=== PATIENT | male | born 1965 | race African-American/Black ===

== ENCOUNTER 2018-12-30 10:02 | Inpatient (IN) ==
[2018-12-30] MEDS ORDERED: ZOFRAN ODT PO PRN (10:51)
[2018-12-30] MEDS ORDERED: ZOFRAN IV PRN (10:51)
[2018-12-30] MEDS ORDERED: SEROQUEL PO PRN (10:51)
[2018-12-30] MEDS ORDERED: DULCOLAX PR PRN (10:51)
[2018-12-30] MEDS ORDERED: NICOTINE GUM BUCCAL PRN (10:51)
[2018-12-30] MEDS ORDERED: PHENOBARBITAL IV PRN (10:51)
[2018-12-30] MEDS ORDERED: SENOKOT PO PRN (10:51)
[2018-12-30] MEDS ORDERED: IMODIUM PO PRN ×2 (10:51)
[2018-12-30] MEDS ORDERED: TYLENOL PO PRN (10:51)
[2018-12-30] MEDS ORDERED: ZOFRAN IM PRN (10:51)
[2018-12-30] MEDS ORDERED: DESYREL PO PRN (10:51)
[2018-12-30] MEDS ORDERED: MOTRIN PO PRN (10:51)
[2018-12-30] MEDS ORDERED: MAALOX PLUS LIQUID PO PRN (10:51)
[2018-12-30] MEDS ORDERED: TUBERSOL ID ONE (10:51)
[2018-12-30] MEDS ORDERED: D5W 1,000 ML IV PRN (10:51)
[2018-12-30 11:34] LABS: UR AMPHETAMINES QUAL NONE DETECTED (NONE DETECT); UR BARBITUATES QUAL NONE DETECTED (NONE DETECT); UR BENZODIAZEPIN QUAL NONE DETECTED (NONE DETECT); UR CANNABINOIDS QUAL NONE DETECTED (NONE DETECT); UR COCAINE QUAL NONE DETECTED (NONE DETECT); UR METHADONE QUAL NONE DETECTED (NONE DETECT); UR METHAMPHETAMINE QUAL NONE DETECTED (NONE DETECT); UR OPIATES QUAL NONE DETECTED (NONE DETECT); UR OXYCODONE QUAL NONE DETECTED (NONE DETECT); UR PCP QUAL NONE DETECTED (NONE DETECT); UR PROPOXYPHENE QUAL NONE DETECTED (NONE DETECT); UR TCA QUAL NONE DETECTED (NONE DETECT)
[2018-12-30] MEDS ORDERED: BENTYL PO PRN (11:36)
[2018-12-30] MEDS ORDERED: ATARAX PO PRN (11:36)
[2018-12-30] MEDS ORDERED: M.V.I.-12 10 ML, FOLIC ACID 1 MG, MAGNESIUM SULFATE 1 GM, THIAMINE 100 MG in NS 1,000 ML IV ONE (11:36)
[2018-12-30] MEDS ORDERED: SALINE LOCK IV FLUID XX ONE (11:36)
[2018-12-30] MEDS ORDERED: ROBAXIN PO PRN (11:36)
[2018-12-30 11:48] LABS: HEMATOCRIT 39.4 % (42.0-52.0); HEMOGLOBIN 13.4 g/dL (14.0-18.0); MCH 31.5 PG (27-31); MCV 92.5 FL (81-99); MPV 9.6 FL (7.4-10.4); RBC 4.26 XMIL (4.7-6.1); RDW 14.3 % (11.5-14.5); WBC 7.42 X1000 (4.8-10.8)
[2018-12-30 12:08] LABS: ALBUMIN 4.5 g/dL (3.5-5.0); CALCIUM 9.8 mg/dL (8.8-10.2); CREATININE 1.5 mg/dL (0.7-1.2); POTASSIUM 4.9 mmol/L (3.5-5.1); TOTAL BILIRUBIN 0.4 mg/dL (0.20-1.00); TOTAL PROTEIN 7.8 g/dL (6.3-8.3)
[2018-12-30 13:21] LABS: URINE SOURCE CLEAN CATCH
[2018-12-30 13:35] LABS: BILIRUBIN URINE NEGATIVE (NEGATIVE); BLOOD URINE 1+ (NEGATIVE); CLARITY CLEAR (CLEAR); COLOR YELLOW; GLUCOSE URINE NEGATIVE (NEGATIVE); KETONE URINE NEGATIVE (NEGATIVE); LEUKOCYTES URINE NEGATIVE (NEGATIVE); NITRITE URINE NEGATIVE (NEGATIVE); PH URINE 6.5; PROTEIN URINE NEGATIVE (NEGATIVE); UROBILINOGEN URINE NORMAL
[2018-12-30 13:36] LABS: URINE EPITHELIAL CELLS <10 /HPF (<10); URINE RBC <10 /HPF (<10)
[2018-12-30] MEDS: LIBRIUM PO SCH ×2 (14:55→23:20)
[2018-12-30] MEDS ORDERED: MONOPRIL PO SCH (18:15)
[2018-12-31] MEDS: LIBRIUM PO SCH ×3 (04:46→17:57)
[2018-12-31] MEDS: PROTONIX PO SCH ×2 (04:46→06:07)
[2018-12-31] MEDS: MONOPRIL PO SCH (08:30)
[2018-12-31] MEDS: HYDROCHLOROTHIAZIDE PO SCH (08:30)
[2018-12-31] MEDS: NICODERM PATCH TD PRN (08:30)
[2018-12-31] MEDS: FOLIC ACID PO SCH (08:30)
[2018-12-31] MEDS: THERA M PLUS PO SCH (08:30)
[2018-12-31] MEDS: VITAMIN B-1 PO SCH (08:30)
[2019-01-01] MEDS: LIBRIUM PO SCH ×4 (00:05→17:33)
[2019-01-01] MEDS: PROTONIX PO SCH (06:06)
--- NOTE | 2019-01-01 07:11 | PROGRESS NOTE ---
DATE: 12/31/2018 SUBJECTIVE: Patient seen and examined by myself on the . Notes that he is feeling a little bit better. Still did not sleep last night. Thinks he going to be able to eat this morning. Denies any current nausea or vomiting. Still having some mild shakiness. States his tremors appear to be better, his sweating is better. PHYSICAL EXAMINATION: Vital Signs: Reviewed and stable. He is awake, alert. He is in no current distress. HEENT: Normocephalic, atraumatic. CHAI. Neck: Supple. No JVD. CARDIOVASCULAR: Regular rate. No murmurs. Chest: Clear, nonlabored. Abdomen: Soft, nondistended. Extremities: Moves all extremities. Still generally weak with mild tremor. Neurologic: No focal changes. ASSESSMENT: 1. Nausea and vomiting. 2. Abdominal pain. 3. Tremors. 4. Myalgias. 5. Paresthesias. 6. Alcohol abuse withdrawal and stabilization. 7. Hypertension. PLAN: We will continue patient in the hospital. Begin counseling. We have restarted blood pressure medications. We will continue Librium and wean as tolerated. cc: Naren Gross MD
--- NOTE | 2019-01-01 07:25 | HISTORY AND PHYSICAL ---
CHIEF COMPLAINT: Nausea and vomiting. HISTORY OF PRESENT ILLNESS: The patient was seen and examined on 12/30/2018. Notes that he is having some tremors. He does not feel well. He has been jittery, anxious, nervous, and has been falling. States that usually when he gets to this stage of symptoms he has to start drinking again. That is why he came to [facility] for additional help. SOCIAL HISTORY: Patient is , lives at home. He is unemployed, in [place], PAST MEDICAL HISTORY: 1. History of kidney cancer. Status post nephrectomy in December,. 2. History of hypertension. 3. He has lost approximately 20 pounds in the past year. 4. He has chronic anxiety and depression. 5. Frequent blackouts that are alcohol related. MEDICATIONS: 1. Amlodipine 10 mg. 2. Lisinopril 10 mg. ALLERGIES: No known drug allergies although he cannot taking any anti-inflammatories or NSAIDs due to only having one kidney. REVIEW OF SYSTEMS: CIWA score is elevated at 15 secondary to mild visible tremors with his arms extended. He is having some nausea, no real vomiting. Denies any chest pain, palpitations. He is having frequent episodes of paroxysmal sweating, anxiety, easily agitated, has a headache but no blurred vision or focalized numbness, tingling, weakness. Denies any chest pain, palpitations, shortness of breath, dysuria, frequency, or urgency. Denies constipation, melena, hematochezia. Denies any skin rashes, weight loss or weight gain. FAMILY HISTORY: Noncontributory. SUBSTANCE ABUSE HISTORY: The patient was in [facility] outpatient in 2018 for depression. Has never been in a treatment facility for alcohol. Started drinking at age 20. Currently drinks at least half a case a day, but over the last week he has tried to wean down to 6 to 8 beers. Started smoking at age 31, currently smokes a pack a day. PHYSICAL EXAMINATION: VITAL SIGNS: Reviewed and stable. GENERAL: He is awake, alert. He is in no current respiratory distress. Very pleasant to talk with but he is somewhat shaky when she stands and has notable tremors with his arms extended, although mild. HEENT: Normocephalic, atraumatic, CHAI. NECK: Supple. No JVD. CARDIOVASCULAR: Regular rate. No murmurs. CHEST: Clear, nonlabored. ABDOMEN: Soft. EXTREMITIES: Moves all extremities. NEUROLOGIC: No focal changes. ASSESSMENT: 1. Nausea, vomiting. 2. Abdominal pain. 3. Myalgias. 4. Paresthesias. 5. Paroxysmal sweating. 6. Tremors. 7. Alcohol abuse, withdrawal and stabilization. 8. Chronic anxiety and depression. 9. Hypertension. 10. Weight loss secondary to stress. PLAN: We will continue patient in the hospital, place him on high-dose Librium taper. We will begin counseling. We will follow his blood pressures, restart his blood pressure medications. cc: Naren Gross MD
[2019-01-01] MEDS: FOLIC ACID PO SCH (09:08)
[2019-01-01] MEDS: MONOPRIL PO SCH (09:08)
[2019-01-01] MEDS: THERA M PLUS PO SCH (09:08)
[2019-01-01] MEDS: VITAMIN B-1 PO SCH (09:08)
[2019-01-01] MEDS: HYDROCHLOROTHIAZIDE PO SCH (09:08)
--- NOTE | 2019-01-01 17:43 | PROGRESS NOTE ---
DATE: 01/01/2019 SUBJECTIVE: Patient notes overall he is feeling better. He is feeling a little bit stronger. He is having less tremors. Denies any myalgias. Denies any fevers or chills. Denies any GI or issues currently. OBJECTIVE: Vital Signs: Reviewed and stable. Temp 98.1 degrees, pulse 74, respiratory rate 18, BP 115/86. General: Patient is very pleasant to talk with. He is in no current respiratory distress. HEENT: Normocephalic. Neck: Supple. Cardiovascular: Regular rate. No murmurs. Chest: Clear and unlabored. Abdomen: Soft, nondistended. Extremities: Moves all extremities. Neurologic: No focal changes. He has no current tremors. He is awake, alert, oriented x3. ASSESSMENT: 1. Nausea and vomiting. 2. Abdominal pain. 3. Myalgias. 4. Paresthesias. 5. Paroxysmal sweating. 6. Alcohol abuse, withdrawal, and stabilization. PLAN: We will continue patient in the hospital. Continue to wean Librium. He is improving quite nicely. Hopefully he can be discharged home over the next 1 or 2 days. Discussed with patient the use of naltrexone for medication assisted therapy on discharge. cc: Naren Gross MD
[2019-01-02] MEDS: LIBRIUM PO SCH ×5 (00:03→17:35)
[2019-01-02] MEDS: PROTONIX PO SCH (06:12)
[2019-01-02] MEDS: THERA M PLUS PO SCH (08:02)
[2019-01-02] MEDS: MONOPRIL PO SCH (08:02)
[2019-01-02] MEDS: HYDROCHLOROTHIAZIDE PO SCH (08:02)
[2019-01-02] MEDS: FOLIC ACID PO SCH (08:02)
[2019-01-02] MEDS: VITAMIN B-1 PO SCH (08:02)
[2019-01-02] MEDS: REVIA PO SCH (10:03)
[2019-01-02] MEDS: NICODERM PATCH TD PRN (15:50)
[2019-01-03] MEDS: PROTONIX PO SCH (06:22)
[2019-01-03 07:55] VITALS: BP 125/91
[2019-01-03] MEDS: FOLIC ACID PO SCH (08:22)
[2019-01-03] MEDS: VITAMIN B-1 PO SCH (08:22)
[2019-01-03] MEDS: REVIA PO SCH (08:22)
[2019-01-03] MEDS: MONOPRIL PO SCH (08:23)
[2019-01-03] MEDS: HYDROCHLOROTHIAZIDE PO SCH (08:23)
[2019-01-03] MEDS: LIBRIUM PO SCH (08:23)
[2019-01-03] MEDS: THERA M PLUS PO SCH (08:23)
--- NOTE | 2019-01-03 11:19 | PROGRESS NOTE ---
DATE: 01/02/2019 SUBJECTIVE: Patient overall is starting to feel better. He is ambulating in the [place] without much difficulty. The patient seen and examined by myself on the -. OBJECTIVE: Vital Signs: Vital signs reviewed. Temperature 98.5 degrees, pulse 63, respiratory rate 20, BP 127/92. General: Patient is awake, alert. He is in no current respiratory distress. Very pleasant to talk with. HEENT: Normocephalic. Neck: Supple. CV: Regular rate. No murmurs. Chest: Clear and nonlabored. Abdomen: Soft. Extremities: Moves all extremities. Neurologic: No focal changes. ASSESSMENT: 1. Nausea and vomiting. 2. Abdominal pain. 3. Myalgias. 4. Paresthesias. 5. Paroxysmal sweating. 6. Opiate abuse. 7. Alcohol abuse, withdrawal and continued stabilization. PLAN: We will continue to cut down Librium, continue to follow. If he improves, hopefully can discharge home tomorrow. cc: Naren Gross MD
[2019-01-03] MEDS ORDERED: LIBRIUM PO SCH (21:00)
--- NOTE | 2019-01-04 20:40 | DISCHARGE SUMMARY ---
ADMISSION DATE: 12/30/2018 DISCHARGE DATE: 01/03/2019 DISCHARGE DIAGNOSIS: 1. Nausea, vomiting. 2. Abdominal pain. 3. Myalgias. 4. Paresthesias. 5. Paroxysmal sweating. 6. Alcohol abuse withdrawal and stabilization. 7. Tremors. 8. Myalgias. CONSULTATIONS: None. PROCEDURES: None. BRIEF HOSPITAL COURSE: The patient is a 53-year-old male who presented to [facility] program secondary to nausea, vomiting, abdominal pain, tremors, myalgias. Notes he has been having issues with alcoholism. He has had episodes where he has blacked out and could not remember as well as syncopal episodes that were alcohol-related. Overall patient thankfully had uneventful hospital course prolonged only secondary to the extent of his alcoholism as well as ensuring adequate followup. DISPOSITION: Thankfully patient is awake, alert, he is in no distress. He is ambulating in the [place] without any difficulty. He will be discharged home. He will continue a 2-3 day taper Librium at home, will continue naltrexone. Discussed with him the importance of outpatient life counseling as well as drug counseling. He will continue to follow his blood pressures at home as well. Greater than 30 minutes was spent in total care. cc: Naren Gross MD
== END 2019-01-03 10:40 | disposition home or self-care (01) | DRG 897 ==
LOC: P.DIRADM 10:03 → P.MEDSURG 10:23
PROVIDERS: ADMIT Family Medicine; ATTEND Family Medicine
CPT/HCPCS: 80053; 80104; 80301; 80305; 80307; 80320; 81001; 82055; 82150; 83690; 85027; A9270; G0431; G0434; G0477; G0480; G6040; J3411; J3475; J7030